=== PATIENT | male | born 1975 | race Caucasian/White ===

== ENCOUNTER 2024-09-26 15:05 | Emergency (ER) | payer MEDICARE, OTHER, SELFPAY ==
[2024-09-26 15:07] VITALS: BP 168/93
--- NOTE | 2024-09-26 16:31 | ED.GENMED ---
History of Present Illness
General
Chief Complaint: Flank Pain
Source: patient
Exam Limitations: none
Time Seen by Provider: 09/26/24 15:13
Nursing documentation reviewed up to this point in time: agreed with
History of Present Illness
History of Present Illness:
49-year-old male with past medical history of muscular dystrophy, LINDA presenting to the emergency department today with concerns of right-sided flank pain rating to his right hip intermittently over the past month worsening over the past few days
seem to be worse with some movement denies any nausea vomiting diarrhea urinary symptoms no chest pain shortness of breath fevers redness or warmth no rashes.
Past History
Past History
ED Past Medical History: Cancer (Testicular 1996), HTN and Other (Muscular dystrophy)
ED Past Surgical History: Urological and Other (Orchiectomy)
Social History
Tobacco: Non-smoker
Alcohol: Occasional
Drug: None
Personal: Single
Living: with family
Employment: Employed
Family History
Family History: Hypertension
Review of Systems
Review of Systems
Allergies reviewed?: Yes
All Other Systems: ROS reviewed and negative except as documented in HPI and ROS
Phy Exam
Physical Exam
Physical Exam:
GENERAL: Alert , in no apparent distress
EYE: pupils equal and reactive
NECK: Supple, no significant adenopathy.
ENT: o/p clr, mmm.
CARDIAC: Regular rate and rhythm .
LUNGS: Clear breath sounds bilaterally, no acute respiratory distress, no wheezes/rales/rhonchi
ABDOMEN: Soft, without focal tenderness, no r/g, no cvat
NEUROLOGICAL: Alert and oriented, no focal neuro deficits
SKIN: Warm and dry, skin intact.
MUSCULOSKELETAL: No specific reproducible discomfort to the right hip or low back no redness or warmth no evidence of rash not obviously reproducible with movement of the right leg did seem to have some increasing discomfort when sitting up. No
edema, well perfused.
PSYCH: Normal and appropriate interaction.
Course
Orders/Labs/Results
Orders:
Orders
09/26/24 16:04
CT Abd/pel Without Iv Or Oral Urgent
Comment:
Reason For Exam: R flank pain hx of stones
09/26/24 16:06
Urinalysis Reflex To Culture Urgent
Date Specimen was Collected: 09/26/24
Time Specimen was Collected: 16:00
09/26/24 17:01
CBC/With Diff [Complete Blood Count/With Diff] Urgent
CMP [Comprehensive Metabolic Panel] Urgent
Abnormal Lab Results
09/26/24
17:01
MCH 31.2 H pg
(27.0-31.0)
MPV 10.8 H fL
(7.4-10.4)
Absolute Lymphs (auto) 1.1 L 10^3/uL
(1.2-3.4)
Immature Gran % 0.6 H %
(0-0.5)
BUN 5 L mg/dl
(9-20)
Creatinine 0.2 L mg/dL
(0.7-1.3)
Glucose 126 H mg/dl
(70-99)
09/26/24 17:01
09/26/24 17:01
Vital Signs
Initial and Last Documented VS:
Initial Vital Signs
Temp Pulse Resp BP Pulse Ox
98.7 F 85 16 168/93 99
09/26/24 15:07 09/26/24 15:07 09/26/24 15:07 09/26/24 15:07 09/26/24 15:07
Last Documented Vital Signs
Temp Pulse Resp BP Pulse Ox
97.9 F 79 20 145/85 98
09/26/24 18:09 09/26/24 18:09 09/26/24 18:09 09/26/24 18:09 09/26/24 18:09
MDM/Problems Addressed
MDM/Problems Addressed:
49-year-old male presenting to the emergency department today with concerns of right low back flank and right-sided hip discomfort intermittently over the past month worsening over the past few days seem to be slightly worse with movement. Does
have a history of kidney stones which he felt were somewhat different. Hypertensive on arrival otherwise vital signs are normal. CT scan without emergent findings labs unremarkable urinalysis normal. Patient likely with mechanical discomfort.
Stable for outpatient follow-up return precautions given.
*Critical Care Note
Total Time (30-74mins, 75-104mins- exclusive of procedures): Not Applicable
ED Attending Note
-
Portions of this chart may have been created with voice recognition software.� Occasional wrong word or��sound alike� substitutions may have occurred due to the inherent limitations of voice recognition software.
Discharge Plan
Departure
Patient Disposition: Home (Routine Discharge)
Date of Disposition: 09/26/24
Time of Disposition: 18:30
Patient with high blood pressure during this ER visit?: No
Condition: Good
Covid-19: Not Applicable
Discharge Problem:
Acute pain of right hip
Instructions: Hip Pain ED
Prescriptions:
No Action
diltiazem HCl 240 MG capsule,extended release 24hr
240 mg PO DAILY
albuterol sulfate 4 MG tablet
10 mg PO TID
diclofenac potassium 50 mg tablet
50 mg PO BID Qty: 20 0RF
Referrals:
Kwabena Clark MD [Family Provider] -
Activity Restrictions/Additional Instructions:
You came to the emergency department today with concerns of hip discomfort. Here you have a reassuring assessment. Please feel close with the primary care doctor. Return to the emergency department any worsening, new or concerning symptoms.
Interventions
Interventions:
*Risk Screen - Suicide Last Done: 09/26/24 15:34
*General Assessment Last Done: 09/26/24 15:34
*Neglect/Abuse Screening Last Done: 12/10/24 15:34
*ED COVID-19 Vaccine History Last Done: 09/26/24 15:34
MH-Ouhsat-Arypqcfyor Assessment Last Done: 09/26/24 15:34
ED-Male Genitourinary Assessment Last Done: 09/26/24 15:34
Discharge Date and Time
Print Language: [id number]
[2024-09-26 16:55] LABS: Urine Albumin Negative (Neg - Trace); Urine Bilirubin Negative (Negative); Urine Character Slightly Cloudy (Clear); Urine Color Yellow; Urine Glucose Negative (Negative); Urine Ketone Negative (Negative); Urine Leukocyte Negative (Negative); Urine Nitrite Negative (Negative); Urine Occult Blood Negative (Negative); Urine Urobilinogen Negative (Neg - 1+)
[2024-09-26 17:14] LABS: % Basophils 0.7 % (0-2); % Immature Granulocytes 0.6 % (0-0.5); % Monocytes 8.8 % (1.7-9.3); % Neutrophils 66.9 % (42.2-75.2); Absolute Eosinophils 0.1 10^3/uL (0-0.7); Absolute Lymphocytes 1.1 10^3/uL (1.2-3.4); Absolute Monocytes 0.5 10^3/uL (0.1-0.6); Absolute Neutrophils 3.6 10^3/uL (1.4-6.5); Hematocrit 47.6 % (39.0-52.0); Hemoglobin 16.3 g/dL (13.0-18.0); Mean Corp Hgb Conc. 34.2 g/dL (33.0-37.0); Mean Corpuscular Hgb 31.2 pg (27.0-31.0); Mean Platelet Volume 10.8 fL (7.4-10.4); Nucleated Red Blood Cells % 0 % (-); Platelet Count 230 10^3/uL (130-400); Red Blood Cell Count 5.23 10^6/uL (4.70-6.10); Red Cell Dist. Width 13.7 % (11.5-14.5); White Blood Cell Count 5.4 10^3/uL (4.8-10.8)
[2024-09-26 17:28] LABS: ALT (SGPT) 48 U/L (0-50); AST (SGOT) 30 U/L (17-59); Albumin 4.9 g/dl (3.5-5.0); Alkaline Phosphatase 87 U/L (38-126); Blood Urea Nitrogen 5 mg/dl (9-20); Calcium 9.1 mg/dl (8.4-10.2); Carbon Dioxide 29 mmol/L (22-30); Chloride 102 mmol/L (98-107); Glucose 126 mg/dl (70-99); Potassium 3.7 mmol/L (3.5-5.1); Sodium 140 mmol/L (135-145); Total Bilirubin 0.5 mg/dl (0.2-1.3); Total Protein 7.5 g/dl (6.3-8.2); eGFR > 60.00
[2024-09-26 18:09] VITALS: BP 145/85
== END 2024-09-26 18:34 | disposition home or self-care (01) ==
LOC: EMR 15:05
PROVIDERS: Physician Assistant; EMERGENCY PHYSICIAN Emergency Medicine; FAMILY PHYSICIAN Family Medicine
DX: M25.551 Pain in right hip (principal); G71.00 Muscular dystrophy, unspecified; G47.33 Obstructive sleep apnea (adult) (pediatric); G12.9 Spinal muscular atrophy, unspecified; I10 Essential (primary) hypertension; Z82.49 Family history of ischemic heart disease and other diseases of the circulatory system; Z85.47 Personal history of malignant neoplasm of testis; Z87.442 Personal history of urinary calculi; Z90.79 Acquired absence of other genital organ(s)
CPT/HCPCS: 99284; 74176; 80053; 81003; 85025

== ENCOUNTER → 2024-10-13 15:00 | Outpatient (REF) | payer MEDICARE, OTHER, SELFPAY | LOC: RCS 15:00 | PROVIDERS: ATTENDING PHYSICIAN Nuclear Medicine Nuclear Cardiology; FAMILY PHYSICIAN Family Medicine | DX: I10 Essential (primary) hypertension (principal); R00.2 Palpitations; R06.02 Shortness of breath | CPT/HCPCS: 93306 ==

== ENCOUNTER 2025-04-05 06:10 | Day surgery (SDC) | payer MEDICARE, OTHER, SELFPAY ==
[2025-04-05 08:15] VITALS: BMI 28.1
[2025-04-05 08:16] VITALS: BMI 28.1
[2025-04-05 08:17] VITALS: BP 179/110
[2025-04-05 10:20] VITALS: BP 132/92
[2025-04-05 10:30] VITALS: BP 140/99
[2025-04-05 10:45] VITALS: BP 153/89
== END 2025-04-05 11:11 | disposition home or self-care (01) ==
LOC: GI 06:10
PROVIDERS: ATTENDING PHYSICIAN Internal Medicine Gastroenterology
DX: Z12.11 Encounter for screening for malignant neoplasm of colon (principal); K64.8 Other hemorrhoids; K44.9 Diaphragmatic hernia without obstruction or gangrene; K22.89 Other specified disease of esophagus; K29.70 Gastritis, unspecified, without bleeding; K21.9 Gastro-esophageal reflux disease without esophagitis; D12.5 Benign neoplasm of sigmoid colon; K63.5 Polyp of colon; Z83.719 Family history of colon polyps, unspecified
CPT/HCPCS: 45385; 45380; 43239; 88305; 88342

== ENCOUNTER → 2025-04-13 07:04 | Outpatient (REF) | payer MEDICARE, OTHER, SELFPAY ==
[2025-04-13] MEDS: LEXISCAN 0.4 MG IV (09:03)
[2025-04-13] MEDS: FLUSH (NSS) 1 FLUSH IV (09:04)
== END ==
LOC: RCS 07:04
PROVIDERS: ATTENDING PHYSICIAN Nuclear Medicine Nuclear Cardiology; FAMILY PHYSICIAN Family Medicine
DX: I10 Essential (primary) hypertension (principal); R06.02 Shortness of breath; R07.89 Other chest pain
CPT/HCPCS: 78452; 93017; A9500; J2785